=== PATIENT | male | born 1970 | race Caucasian/White ===

== ENCOUNTER 2018-11-11 13:13 | Emergency (ER) | payer SELFPAY | END 2018-11-11 16:11 | disposition left against medical advice (07) | LOC: FTE 16:11 | DX: Z53.21 Procedure and treatment not carried out due to patient leaving prior to being seen by health care provider (principal) ==

== ENCOUNTER 2018-11-18 10:23 | Inpatient (IN) | payer OTHER ==
[2018-11-18] MEDS: morphine 4 MG/ML VIAL IV (13:27)
[2018-11-18 13:39] LABS: ADD MAN DIFF? NO
[2018-11-18 13:50] LABS: WHITE BLOOD COUNT 15.1 10^3/ul (4.8-10.8)
[2018-11-18 13:50] LABS: BASOPHIL # 0.1 10^3/ul (0.0-0.1); BASOPHILS % 0.4 % (0.0-2.0); EOSINOPHILS # 0.1 10^3/ul (0.0-0.5); EOSINOPHILS % 0.9 % (0.0-7.0); HEMATOCRIT 44.8 % (42.0-52.0); HEMOGLOBIN 15.4 g/dl (14.0-18.0); LYMPHOCYTES # 2.1 10^3/ul (0.8-2.9); LYMPHOCYTES % 13.7 % (15.0-51.0); MEAN CORPUSCULAR HEMOGLOBIN 32.8 pg (29.0-33.0); MEAN CORPUSCULAR HGB CONC 34.4 g/dl (32.0-37.0); MEAN CORPUSCULAR VOLUME 95.5 fl (82.0-101.0); MEAN PLATELET VOLUME 9.7 fl (7.4-10.4); MONOCYTE # 0.7 10^3/ul (0.3-0.9); MONOCYTES % 4.4 % (0.0-11.0); NEUTROPHIL # 12.1 10^3/ul (1.6-7.5); NEUTROPHILS % 80.1 % (39.0-77.0); PLATELET COUNT 263 10^3/UL (140-415); RED BLOOD COUNT 4.69 10^6/ul (4.70-6.10); RED CELL DISTRIBUTION WIDTH 12.8 % (11.5-14.5)
[2018-11-18] MEDS ORDERED: ONDANSETRON 4 MG INJ IV ×2 (14:00→17:30)
[2018-11-18] MEDS ORDERED: ACETAMINOPHEN 325 MG TAB PO (14:00)
[2018-11-18 14:04] LABS: ADD UMIC NO; UR ASCORBIC ACID NEGATIVE (NEGATIVE); UR BILIRUBIN (Dip) NEGATIVE (NEGATIVE); UR BLOOD (Dip) NEGATIVE (NEGATIVE); UR CLARITY CLEAR (CLEAR); UR COLOR YELLOW (YELLOW); UR GLUCOSE (Dip) NEGATIVE (NEGATIVE); UR KETONES (Dip) NEGATIVE (NEGATIVE); UR LEUKOCYTE ESTERASE (Dip) NEGATIVE Leu/ul (NEGATIVE); UR NITRITE (Dip) NEGATIVE (NEGATIVE); UR TOTAL PROTEIN (Dip) NEGATIVE (NEGATIVE); UR UROBILINOGEN (Dip) NEGATIVE (NEGATIVE)
[2018-11-18 14:09] LABS: INR 0.87; PROTIME 11.9 Sec (11.9-14.9); PT RATIO 0.9
[2018-11-18 14:10] LABS: PARTIAL THROMBOPLASTIN TIME 34.5 Sec (23.0-35.0)
[2018-11-18 14:11] LABS: ALANINE AMINOTRANSFERASE 20 IU/L (13-69); ALBUMIN 4.4 g/dl (3.3-4.9); ALBUMIN/GLOBULIN RATIO 1.25; ALKALINE PHOSPHATASE 82 IU/L (42-121); ANION GAP 8 (5-13); ASPARTATE AMINO TRANSFERASE 21 IU/L (15-46); BILIRUBIN,INDIRECT 0.3 mg/dl (0-1.1); BILIRUBIN,TOTAL 0.3 mg/dl (0.2-1.3); BLOOD UREA NITROGEN 14 mg/dl (7-20); CALCIUM 10.9 mg/dl (8.4-10.2); CARBON DIOXIDE 26 mmol/L (21-31); CHLORIDE 108 mmol/L (97-110); CREATININE 0.94 mg/dl (0.61-1.24); Estimated GFR > 60 mL/min (>60); GLUCOSE 96 mg/dl (70-220); POTASSIUM 4.4 mmol/L (3.5-5.1); SODIUM 142 mmol/L (135-144); TOTAL PROTEIN 7.9 g/dl (6.1-8.1)
[2018-11-18] MEDS: morphine 10 MG INJ IV (14:35)
[2018-11-18] MEDS: HYDROmorphONE 1 MG/ML SYG IV ×2 (17:15→21:05)
[2018-11-18] MEDS: NICOTINE (14 MG/24 HR) PATCH TRANSDERM (21:05)
[2018-11-18] MEDS: GABAPENTIN 300 MG CAP PO (21:05)
[2018-11-19] MEDS: HYDROmorphONE 1 MG/ML SYG IV ×6 (01:10→20:46)
[2018-11-19] MEDS ORDERED: NICOTINE (14 MG/24 HR) PATCH TRANSDERM (09:00)
[2018-11-19] MEDS: NICOTINE (14 MG/24 HR) PATCH TRANSDERM (09:16)
[2018-11-19] MEDS: GABAPENTIN 300 MG CAP PO ×2 (09:18→20:45)
[2018-11-19 11:46] LABS: ADD MAN DIFF? NO
[2018-11-19 11:50] LABS: WHITE BLOOD COUNT 9.4 10^3/ul (4.8-10.8)
[2018-11-19 11:50] LABS: BASOPHIL # 0.1 10^3/ul (0.0-0.1); BASOPHILS % 0.9 % (0.0-2.0); EOSINOPHILS # 0.3 10^3/ul (0.0-0.5); EOSINOPHILS % 3.4 % (0.0-7.0); HEMATOCRIT 42.3 % (42.0-52.0); HEMOGLOBIN 14.7 g/dl (14.0-18.0); LYMPHOCYTES # 2.8 10^3/ul (0.8-2.9); LYMPHOCYTES % 29.2 % (15.0-51.0); MEAN CORPUSCULAR HGB CONC 34.8 g/dl (32.0-37.0); MEAN CORPUSCULAR VOLUME 94.8 fl (82.0-101.0); MEAN PLATELET VOLUME 10.3 fl (7.4-10.4); MONOCYTE # 0.6 10^3/ul (0.3-0.9); MONOCYTES % 6.6 % (0.0-11.0); NEUTROPHIL # 5.6 10^3/ul (1.6-7.5); NEUTROPHILS % 59.3 % (39.0-77.0); PLATELET COUNT 237 10^3/UL (140-415); POSITIVE DIFF @See below; RED BLOOD COUNT 4.46 10^6/ul (4.70-6.10); RED CELL DISTRIBUTION WIDTH 12.9 % (11.5-14.5)
[2018-11-19 12:07] LABS: ANION GAP 3 (5-13); BLOOD UREA NITROGEN 21 mg/dl (7-20); CALCIUM 10.8 mg/dl (8.4-10.2); CARBON DIOXIDE 30 mmol/L (21-31); CHLORIDE 105 mmol/L (97-110); CREATININE 1.07 mg/dl (0.61-1.24); Estimated GFR > 60 mL/min (>60); GLUCOSE 86 mg/dl (70-220); POTASSIUM 4.5 mmol/L (3.5-5.1); SODIUM 138 mmol/L (135-144)
[2018-11-19 12:15] LABS: INR 0.84; PROTIME 11.6 Sec (11.9-14.9); PT RATIO 0.9
[2018-11-19 12:16] LABS: PARTIAL THROMBOPLASTIN TIME 33.7 Sec (23.0-35.0)
[2018-11-20] MEDS: HYDROmorphONE 1 MG/ML SYG IV ×5 (00:56→20:09)
[2018-11-20] MEDS: NICOTINE (14 MG/24 HR) PATCH TRANSDERM (08:52)
[2018-11-20] MEDS: GABAPENTIN 300 MG CAP PO ×2 (08:52→20:51)
[2018-11-20] MEDS ORDERED: MIDAZOLAM 1 MG/ML 2 ML INJ (13:48)
[2018-11-20] MEDS ORDERED: FENTAnyl 50 MCG/ML VIAL ×3 (13:48→18:09)
[2018-11-20] MEDS ORDERED: PROPOFOL 20 ML (13:49)
[2018-11-20] MEDS ORDERED: METOCLOPRAMIDE 10 MG INJ (13:50)
[2018-11-20] MEDS ORDERED: LIDOCAINE 2% (SDV) 5 ML INJ (13:55)
[2018-11-20] MEDS ORDERED: ROCURONIUM 50 MG INJ (13:55)
[2018-11-20] MEDS ORDERED: SUCCINYLCHOLINE CHLORIDE 100 MG/5 ML SYG IV (13:55)
[2018-11-20] MEDS ORDERED: HYDROmorphONE 2 MG/ML SYG (13:56)
[2018-11-20] MEDS ORDERED: CEFAZOLIN 1 GM INJ (16:19)
[2018-11-20] MEDS ORDERED: HEPARIN 1000 UNITS/ML 10 ML INJ (16:19)
[2018-11-20] MEDS ORDERED: KETAMINE (50 MG/ML) 10 ML VIAL (16:48)
[2018-11-20] MEDS ORDERED: NALOXONE (0.4 MG/ML) INJ IV (18:00)
[2018-11-20] MEDS: CEFAZOLIN 1 GM INJ (18:19)
[2018-11-20] MEDS: THROMBIN 5000 UNIT VIAL (18:21)
[2018-11-20] MEDS: GELATIN SIZE 100 SPONGE (18:21)
[2018-11-20] MEDS ORDERED: CEFAZOLIN 2 GM/50 ML (PMX) 50 ML IVPB (19:30)
[2018-11-20] MEDS ORDERED: TRIMETHOBENZAMIDE 100 MG/ML VIAL IM (20:00)
[2018-11-20] MEDS ORDERED: HYDROmorphONE 0.5 MG/0.5 ML SYG IV ×3 (20:00)
[2018-11-20] MEDS ORDERED: IPRATROPIUM (NEB) 0.5 MG/2.5 ML AMP HHN (20:00)
[2018-11-20] MEDS ORDERED: LABETALOL HCL 20MG INJ IV (20:00)
[2018-11-20] MEDS ORDERED: ONDANSETRON 4 MG INJ IV (20:00)
[2018-11-20] MEDS ORDERED: FENTAnyl 50 MCG/ML VIAL IV (20:00)
[2018-11-20] MEDS ORDERED: DIPHENHYDRAMINE 50 MG INJ IV (20:00)
[2018-11-20] MEDS ORDERED: MEPERIDINE 25 MG INJ IV (20:00)
[2018-11-20] MEDS ORDERED: PROCHLORPERAZINE 10 MG INJ IV (20:00)
[2018-11-20] MEDS ORDERED: LEVALBUTEROL (NEB) 1.25 MG/0.5 ML AMP HHN (20:00)
[2018-11-20] MEDS ORDERED: hydrALAzine 20 MG INJ IV (20:00)
[2018-11-20] MEDS ORDERED: SUGAMMADEX SODIUM 200 MG/2 ML VIAL IV (20:08)
[2018-11-20] MEDS: HYDROmorphONE 0.2 MG/ML PCA IV (20:46)
[2018-11-20] MEDS: NS + KCL 20 MEQ 1,000 ML IV (21:13)
[2018-11-20] MEDS: FENTAnyl 50 MCG/ML VIAL IV (21:21)
[2018-11-20] MEDS: CEFAZOLIN 2 GM/50 ML (PMX) 50 ML IVPB (23:57)
[2018-11-21] MEDS: ALBUTEROL/IPRATROPIUM (NEB) 3 ML AMP HHN ×2 (01:25→08:00)
[2018-11-21] MEDS: HYDROmorphONE 0.2 MG/ML PCA IV ×3 (01:52→16:45)
[2018-11-21 05:31] LABS: HEMATOCRIT 34.4 % (42.0-52.0)
[2018-11-21 05:50] LABS: BLOOD UREA NITROGEN 19 mg/dl (7-20); CALCIUM 8.9 mg/dl (8.4-10.2); CARBON DIOXIDE 23 mmol/L (21-31); CHLORIDE 109 mmol/L (97-110); CREATININE 0.96 mg/dl (0.61-1.24); Estimated GFR > 60 mL/min (>60); GLUCOSE 104 mg/dl (70-220); SODIUM 136 mmol/L (135-144)
[2018-11-21 06:01] LABS: POTASSIUM 4.5 mmol/L (3.5-5.1)
[2018-11-21 06:10] LABS: ANION GAP 9 (5-13)
[2018-11-21] MEDS: CEFAZOLIN 2 GM/50 ML (PMX) 50 ML IVPB ×3 (06:29→21:26)
[2018-11-21] MEDS: NS + KCL 20 MEQ 1,000 ML IV (06:29)
[2018-11-21] MEDS: GABAPENTIN 300 MG CAP PO ×2 (08:50→21:25)
[2018-11-21] MEDS: NICOTINE (14 MG/24 HR) PATCH TRANSDERM (08:51)
[2018-11-21] MEDS: HYDROmorphONE 1 MG/ML SYG IV (10:13)
[2018-11-21] MEDS ORDERED: ALBUTEROL/IPRATROPIUM (NEB) 3 ML AMP HHN (14:30)
[2018-11-21] MEDS ORDERED: ACETAMINOPHEN 325 MG TAB PO (17:00)
[2018-11-21] MEDS ORDERED: HYDROCODONE/APAP (10/325) TAB PO (17:00)
[2018-11-21] MEDS: HYDROCODONE/APAP (10/325) TAB PO ×2 (17:09→21:31)
[2018-11-21 17:52] LABS: ADD MAN DIFF? NO
[2018-11-21 17:56] LABS: BASOPHIL # 0.1 10^3/ul (0.0-0.1); BASOPHILS % 0.5 % (0.0-2.0); EOSINOPHILS # 0.1 10^3/ul (0.0-0.5); EOSINOPHILS % 0.9 % (0.0-7.0); HEMATOCRIT 37.8 % (42.0-52.0); HEMOGLOBIN 12.8 g/dl (14.0-18.0); LYMPHOCYTES # 1.8 10^3/ul (0.8-2.9); LYMPHOCYTES % 11.8 % (15.0-51.0); MEAN CORPUSCULAR HGB CONC 33.9 g/dl (32.0-37.0); MEAN CORPUSCULAR VOLUME 97.4 fl (82.0-101.0); MEAN PLATELET VOLUME 10.2 fl (7.4-10.4); MONOCYTE # 1.2 10^3/ul (0.3-0.9); MONOCYTES % 8.1 % (0.0-11.0); NEUTROPHIL # 11.7 10^3/ul (1.6-7.5); NEUTROPHILS % 78.2 % (39.0-77.0); PLATELET COUNT 194 10^3/UL (140-415); RED BLOOD COUNT 3.88 10^6/ul (4.70-6.10); RED CELL DISTRIBUTION WIDTH 13.1 % (11.5-14.5)
[2018-11-21 17:56] LABS: WHITE BLOOD COUNT 14.9 10^3/ul (4.8-10.8)
[2018-11-21 18:12] LABS: LACTIC ACID 0.8 mmol/L (0.5-2.0)
[2018-11-21 18:14] LABS: ANION GAP 4 (5-13); BLOOD UREA NITROGEN 16 mg/dl (7-20); CARBON DIOXIDE 23 mmol/L (21-31); CHLORIDE 105 mmol/L (97-110); CREATININE 1.02 mg/dl (0.61-1.24); Estimated GFR > 60 mL/min (>60); GLUCOSE 96 mg/dl (70-220); SODIUM 132 mmol/L (135-144)
[2018-11-22] MEDS: HYDROmorphONE 0.2 MG/ML PCA IV ×3 (01:18→20:48)
[2018-11-22 02:57] LABS: ADD UMIC YES; UR ASCORBIC ACID NEGATIVE (NEGATIVE); UR BACTERIA FEW /HPF (NONE SEEN); UR BILIRUBIN (Dip) NEGATIVE (NEGATIVE); UR BLOOD (Dip) 1+ mg/dL (NEGATIVE); UR CLARITY CLEAR (CLEAR); UR COLOR STRAW (YELLOW); UR GLUCOSE (Dip) NEGATIVE (NEGATIVE); UR KETONES (Dip) NEGATIVE (NEGATIVE); UR LEUKOCYTE ESTERASE (Dip) TRACE Leu/ul (NEGATIVE); UR NITRITE (Dip) NEGATIVE (NEGATIVE); UR RBC 1 /HPF (0-5); UR SPECIFIC GRAVITY (Dip) 1.008 (1.003-1.030); UR TOTAL PROTEIN (Dip) NEGATIVE (NEGATIVE); UR UROBILINOGEN (Dip) NEGATIVE (NEGATIVE); UR WBC 4 /HPF (0-5)
[2018-11-22] MEDS: CEFAZOLIN 2 GM/50 ML (PMX) 50 ML IVPB ×3 (05:09→21:51)
[2018-11-22 05:35] LABS: ADD MAN DIFF? NO
[2018-11-22 05:40] LABS: WHITE BLOOD COUNT 16.3 10^3/ul (4.8-10.8)
[2018-11-22 05:40] LABS: BASOPHIL # 0.1 10^3/ul (0.0-0.1); BASOPHILS % 0.4 % (0.0-2.0); EOSINOPHILS # 0.3 10^3/ul (0.0-0.5); EOSINOPHILS % 1.5 % (0.0-7.0); HEMATOCRIT 36.5 % (42.0-52.0); HEMOGLOBIN 12.4 g/dl (14.0-18.0); LYMPHOCYTES # 2.4 10^3/ul (0.8-2.9); LYMPHOCYTES % 14.5 % (15.0-51.0); MEAN CORPUSCULAR HEMOGLOBIN 33.1 pg (29.0-33.0); MEAN CORPUSCULAR VOLUME 97.3 fl (82.0-101.0); MEAN PLATELET VOLUME 10.5 fl (7.4-10.4); MONOCYTE # 1.5 10^3/ul (0.3-0.9); MONOCYTES % 9.2 % (0.0-11.0); NEUTROPHILS % 73.7 % (39.0-77.0); PLATELET COUNT 197 10^3/UL (140-415); RED BLOOD COUNT 3.75 10^6/ul (4.70-6.10); RED CELL DISTRIBUTION WIDTH 12.8 % (11.5-14.5)
[2018-11-22 06:20] LABS: ANION GAP 7 (5-13); BLOOD UREA NITROGEN 18 mg/dl (7-20); CALCIUM 10.2 mg/dl (8.4-10.2); CARBON DIOXIDE 25 mmol/L (21-31); CHLORIDE 105 mmol/L (97-110); CREATININE 1.11 mg/dl (0.61-1.24); Estimated GFR > 60 mL/min (>60); GLUCOSE 84 mg/dl (70-220); POTASSIUM 4.3 mmol/L (3.5-5.1); SODIUM 137 mmol/L (135-144)
[2018-11-22] MEDS: HYDROCODONE/APAP (10/325) TAB PO ×4 (08:07→20:46)
[2018-11-22] MEDS: GABAPENTIN 300 MG CAP PO ×2 (09:34→20:46)
[2018-11-22] MEDS: NICOTINE (14 MG/24 HR) PATCH TRANSDERM (09:34)
[2018-11-22] MEDS: KETOROLAC 30 MG INJ IV ×2 (12:32→18:47)
[2018-11-23] MEDS ORDERED: ROCURONIUM 50 MG INJ ×2 (07:00→15:27)
[2018-11-23] MEDS: HYDROmorphONE 0.2 MG/ML PCA IV ×3 (07:08→17:57)
[2018-11-23] MEDS: GABAPENTIN 300 MG CAP PO ×2 (07:43→20:44)
[2018-11-23] MEDS: HYDROCODONE/APAP (10/325) TAB PO ×3 (08:00→20:44)
[2018-11-23] MEDS: NICOTINE (14 MG/24 HR) PATCH TRANSDERM (09:00)
[2018-11-23] MEDS ORDERED: THROMBIN 5000 UNIT VIAL (14:58)
[2018-11-23] MEDS ORDERED: GELATIN SIZE 100 SPONGE (14:59)
[2018-11-23] MEDS ORDERED: MIDAZOLAM 1 MG/ML 2 ML INJ (15:27)
[2018-11-23] MEDS ORDERED: SUCCINYLCHOLINE CHLORIDE 100 MG/5 ML SYG IV (15:27)
[2018-11-23] MEDS ORDERED: LIDOCAINE 2% (SDV) 5 ML INJ (15:27)
[2018-11-23] MEDS ORDERED: PROPOFOL 20 ML ×2 (15:27→17:02)
[2018-11-23] MEDS ORDERED: CEFAZOLIN 1 GM INJ (15:38)
[2018-11-23] MEDS ORDERED: DEXAMETHASONE 4 MG/ML 5 ML INJ (15:50)
[2018-11-23] MEDS ORDERED: EPHEDrine SULFATE 50 MG/5 ML SYG (15:50)
[2018-11-23] MEDS ORDERED: ONDANSETRON 4 MG INJ (15:50)
[2018-11-23] MEDS ORDERED: FAMOTIDINE 20 MG INJ (15:50)
[2018-11-23] MEDS: POLYMYXIN/BACITRACIN 1L IRRIG (16:29)
[2018-11-23] MEDS: ROPIVACAINE 0.5 % 30 ML VIAL (16:30)
[2018-11-23] MEDS ORDERED: SUGAMMADEX SODIUM 200 MG/2 ML VIAL IV ×2 (17:02→17:08)
[2018-11-23] MEDS ORDERED: PROCHLORPERAZINE 10 MG INJ IV (18:00)
[2018-11-23] MEDS ORDERED: FENTAnyl 50 MCG/ML VIAL IV ×3 (18:00)
[2018-11-23] MEDS ORDERED: HYDROmorphONE 1 MG/5 ML IV SYRINGE IV (18:00)
[2018-11-23] MEDS: MEPERIDINE 25 MG INJ IV (18:01)
[2018-11-23] MEDS: HYDROmorphONE 1 MG/5 ML IV SYRINGE IV ×2 (18:01→18:08)
[2018-11-23] MEDS: ONDANSETRON 4 MG INJ IV (18:02)
[2018-11-23] MEDS: KETOROLAC 30 MG INJ IV (18:02)
[2018-11-23] MEDS: DIPHENHYDRAMINE 50 MG INJ IV (18:14)
[2018-11-24] MEDS: CEFAZOLIN 2 GM/50 ML (PMX) 50 ML IVPB ×3 (01:26→17:27)
[2018-11-24 05:14] LABS: ADD MAN DIFF? NO
[2018-11-24 05:19] LABS: WHITE BLOOD COUNT 14.3 10^3/ul (4.8-10.8)
[2018-11-24 05:19] LABS: BASOPHILS % 0.1 % (0.0-2.0); HEMATOCRIT 29.3 % (42.0-52.0); HEMOGLOBIN 10.1 g/dl (14.0-18.0); LYMPHOCYTES # 0.9 10^3/ul (0.8-2.9); MEAN CORPUSCULAR HGB CONC 34.5 g/dl (32.0-37.0); MEAN CORPUSCULAR VOLUME 95.8 fl (82.0-101.0); MEAN PLATELET VOLUME 10.5 fl (7.4-10.4); MONOCYTE # 0.7 10^3/ul (0.3-0.9); MONOCYTES % 5.1 % (0.0-11.0); NEUTROPHIL # 12.5 10^3/ul (1.6-7.5); NEUTROPHILS % 87.8 % (39.0-77.0); PLATELET COUNT 176 10^3/UL (140-415); RED BLOOD COUNT 3.06 10^6/ul (4.70-6.10); RED CELL DISTRIBUTION WIDTH 12.3 % (11.5-14.5)
[2018-11-24 05:48] LABS: ANION GAP 9 (5-13); BLOOD UREA NITROGEN 16 mg/dl (7-20); CALCIUM 9.6 mg/dl (8.4-10.2); CARBON DIOXIDE 27 mmol/L (21-31); CHLORIDE 106 mmol/L (97-110); CREATININE 0.93 mg/dl (0.61-1.24); Estimated GFR > 60 mL/min (>60); GLUCOSE 109 mg/dl (70-220); POTASSIUM 4.8 mmol/L (3.5-5.1); SODIUM 142 mmol/L (135-144)
[2018-11-24] MEDS: GABAPENTIN 300 MG CAP PO ×2 (08:00→20:10)
[2018-11-24] MEDS: NICOTINE (14 MG/24 HR) PATCH TRANSDERM (08:00)
[2018-11-24] MEDS: KETOROLAC 30 MG INJ IV ×3 (08:00→20:11)
[2018-11-24] MEDS: HYDROmorphONE 0.2 MG/ML PCA IV ×2 (08:10→16:24)
[2018-11-24] MEDS: HYDROCODONE/APAP (10/325) TAB PO ×3 (10:40→20:11)
[2018-11-24] MEDS: DOCUSATE SODIUM 100 MG CAP PO (20:11)
[2018-11-25] MEDS: HYDROmorphONE 0.2 MG/ML PCA IV ×3 (00:02→19:59)
[2018-11-25] MEDS: KETOROLAC 30 MG INJ IV ×3 (01:19→16:07)
[2018-11-25] MEDS: CEFAZOLIN 2 GM/50 ML (PMX) 50 ML IVPB ×2 (01:19→09:29)
[2018-11-25] MEDS: HYDROCODONE/APAP (10/325) TAB PO ×5 (01:19→22:37)
[2018-11-25 05:41] LABS: ADD MAN DIFF? NO
[2018-11-25 05:46] LABS: BASOPHILS % 0.4 % (0.0-2.0); EOSINOPHILS # 0.4 10^3/ul (0.0-0.5); EOSINOPHILS % 3.6 % (0.0-7.0); HEMATOCRIT 27.1 % (42.0-52.0); HEMOGLOBIN 9.3 g/dl (14.0-18.0); LYMPHOCYTES # 2.5 10^3/ul (0.8-2.9); LYMPHOCYTES % 25.3 % (15.0-51.0); MEAN CORPUSCULAR HGB CONC 34.3 g/dl (32.0-37.0); MEAN CORPUSCULAR VOLUME 96.1 fl (82.0-101.0); MEAN PLATELET VOLUME 10.1 fl (7.4-10.4); MONOCYTE # 0.8 10^3/ul (0.3-0.9); MONOCYTES % 8.4 % (0.0-11.0); NEUTROPHIL # 6.2 10^3/ul (1.6-7.5); NEUTROPHILS % 61.6 % (39.0-77.0); PLATELET COUNT 199 10^3/UL (140-415); RED BLOOD COUNT 2.82 10^6/ul (4.70-6.10); RED CELL DISTRIBUTION WIDTH 12.4 % (11.5-14.5)
[2018-11-25 06:19] LABS: ANION GAP 4 (5-13); BLOOD UREA NITROGEN 19 mg/dl (7-20); CALCIUM 9.2 mg/dl (8.4-10.2); CARBON DIOXIDE 28 mmol/L (21-31); CHLORIDE 107 mmol/L (97-110); CREATININE 1.14 mg/dl (0.61-1.24); Estimated GFR > 60 mL/min (>60); GLUCOSE 97 mg/dl (70-220); POTASSIUM 3.9 mmol/L (3.5-5.1); SODIUM 139 mmol/L (135-144)
[2018-11-25] MEDS: DOCUSATE SODIUM 100 MG CAP PO ×2 (09:24→20:38)
[2018-11-25] MEDS: GABAPENTIN 300 MG CAP PO ×2 (09:24→20:38)
[2018-11-25] MEDS: NICOTINE (14 MG/24 HR) PATCH TRANSDERM (09:26)
[2018-11-25] MEDS: MAGNESIUM HYDROXIDE 30ML CUP PO (18:33)
[2018-11-26] MEDS: KETOROLAC 30 MG INJ IV (00:08)
[2018-11-26] MEDS: HYDROCODONE/APAP (10/325) TAB PO (07:47)
[2018-11-26] MEDS: DOCUSATE SODIUM 100 MG CAP PO ×2 (08:55→21:02)
[2018-11-26] MEDS: GABAPENTIN 300 MG CAP PO ×2 (08:55→21:02)
[2018-11-26] MEDS: NICOTINE (14 MG/24 HR) PATCH TRANSDERM (08:56)
[2018-11-26 10:00] LABS: ADD MAN DIFF? NO
[2018-11-26 10:00] LABS: WHITE BLOOD COUNT 12.5 10^3/ul (4.8-10.8)
[2018-11-26] MEDS ORDERED: HYDROCODONE/APAP (10/325) TAB PO (10:00)
[2018-11-26 10:01] LABS: BASOPHIL # 0.1 10^3/ul (0.0-0.1); BASOPHILS % 0.6 % (0.0-2.0); EOSINOPHILS # 0.6 10^3/ul (0.0-0.5); EOSINOPHILS % 4.5 % (0.0-7.0); HEMATOCRIT 30.6 % (42.0-52.0); HEMOGLOBIN 10.3 g/dl (14.0-18.0); LYMPHOCYTES # 1.8 10^3/ul (0.8-2.9); LYMPHOCYTES % 14.1 % (15.0-51.0); MEAN CORPUSCULAR HEMOGLOBIN 32.6 pg (29.0-33.0); MEAN CORPUSCULAR HGB CONC 33.7 g/dl (32.0-37.0); MEAN CORPUSCULAR VOLUME 96.8 fl (82.0-101.0); MEAN PLATELET VOLUME 10.4 fl (7.4-10.4); MONOCYTE # 0.6 10^3/ul (0.3-0.9); NEUTROPHIL # 9.4 10^3/ul (1.6-7.5); NEUTROPHILS % 75.1 % (39.0-77.0); PLATELET COUNT 255 10^3/UL (140-415); RED BLOOD COUNT 3.16 10^6/ul (4.70-6.10); RED CELL DISTRIBUTION WIDTH 12.6 % (11.5-14.5)
[2018-11-26] MEDS: HYDROmorphONE 0.5 MG/0.5 ML SYG IV (10:09)
[2018-11-26 10:25] LABS: ANION GAP 8 (5-13); BLOOD UREA NITROGEN 15 mg/dl (7-20); CALCIUM 9.8 mg/dl (8.4-10.2); CARBON DIOXIDE 27 mmol/L (21-31); CHLORIDE 104 mmol/L (97-110); CREATININE 0.87 mg/dl (0.61-1.24); Estimated GFR > 60 mL/min (>60); GLUCOSE 139 mg/dl (70-220); SODIUM 139 mmol/L (135-144)
[2018-11-26] MEDS: OXYCODONE/ACETAMINOPHEN (5/325) TAB PO ×4 (11:03→23:29)
[2018-11-26] MEDS: HYDROmorphONE 1 MG/ML SYG IV ×3 (13:16→21:03)
[2018-11-27] MEDS: OXYCODONE/ACETAMINOPHEN (5/325) TAB PO ×6 (03:32→23:52)
[2018-11-27] MEDS: HYDROmorphONE 1 MG/ML SYG IV ×5 (04:49→21:42)
[2018-11-27 05:50] LABS: ADD MAN DIFF? NO
[2018-11-27 05:52] LABS: BASOPHIL # 0.1 10^3/ul (0.0-0.1); BASOPHILS % 0.6 % (0.0-2.0); EOSINOPHILS # 0.5 10^3/ul (0.0-0.5); EOSINOPHILS % 4.4 % (0.0-7.0); HEMATOCRIT 29.1 % (42.0-52.0); HEMOGLOBIN 9.8 g/dl (14.0-18.0); LYMPHOCYTES # 2.6 10^3/ul (0.8-2.9); LYMPHOCYTES % 23.4 % (15.0-51.0); MEAN CORPUSCULAR HEMOGLOBIN 32.7 pg (29.0-33.0); MEAN CORPUSCULAR HGB CONC 33.7 g/dl (32.0-37.0); MONOCYTE # 0.8 10^3/ul (0.3-0.9); MONOCYTES % 7.3 % (0.0-11.0); NEUTROPHILS % 62.9 % (39.0-77.0); PLATELET COUNT 263 10^3/UL (140-415); RED CELL DISTRIBUTION WIDTH 12.5 % (11.5-14.5)
[2018-11-27 05:52] LABS: WHITE BLOOD COUNT 11.2 10^3/ul (4.8-10.8)
[2018-11-27 06:45] LABS: ANION GAP 3 (5-13); BLOOD UREA NITROGEN 15 mg/dl (7-20); CALCIUM 10.5 mg/dl (8.4-10.2); CARBON DIOXIDE 28 mmol/L (21-31); CHLORIDE 105 mmol/L (97-110); CREATININE 0.94 mg/dl (0.61-1.24); Estimated GFR > 60 mL/min (>60); GLUCOSE 101 mg/dl (70-220); SODIUM 136 mmol/L (135-144)
[2018-11-27 07:00] LABS: POTASSIUM 4.2 mmol/L (3.5-5.1)
[2018-11-27] MEDS: GABAPENTIN 300 MG CAP PO ×2 (09:21→21:42)
[2018-11-27] MEDS: DOCUSATE SODIUM 100 MG CAP PO ×2 (09:21→21:41)
[2018-11-27] MEDS: NICOTINE (14 MG/24 HR) PATCH TRANSDERM (09:22)
[2018-11-28] MEDS: HYDROmorphONE 1 MG/ML SYG IV ×6 (01:39→22:31)
[2018-11-28 05:45] LABS: ANION GAP 4 (5-13); BLOOD UREA NITROGEN 16 mg/dl (7-20); CALCIUM 10.2 mg/dl (8.4-10.2); CARBON DIOXIDE 29 mmol/L (21-31); CHLORIDE 104 mmol/L (97-110); Estimated GFR > 60 mL/min (>60); GLUCOSE 99 mg/dl (70-220); POTASSIUM 4.2 mmol/L (3.5-5.1); SODIUM 137 mmol/L (135-144)
[2018-11-28] MEDS: OXYCODONE/ACETAMINOPHEN (5/325) TAB PO ×5 (06:00→21:16)
[2018-11-28] MEDS: DOCUSATE SODIUM 100 MG CAP PO ×2 (08:37→21:15)
[2018-11-28] MEDS: GABAPENTIN 300 MG CAP PO ×2 (08:37→21:15)
[2018-11-28] MEDS: NICOTINE (14 MG/24 HR) PATCH TRANSDERM (08:38)
[2018-11-28] MEDS: MAGNESIUM HYDROXIDE 30ML CUP PO (18:49)
[2018-11-29] MEDS: OXYCODONE/ACETAMINOPHEN (5/325) TAB PO ×6 (01:10→22:02)
[2018-11-29] MEDS: HYDROmorphONE 1 MG/ML SYG IV ×6 (02:33→23:06)
[2018-11-29] MEDS: DOCUSATE SODIUM 100 MG CAP PO ×2 (09:33→21:31)
[2018-11-29] MEDS: GABAPENTIN 300 MG CAP PO ×2 (09:33→21:31)
[2018-11-29] MEDS: NICOTINE (14 MG/24 HR) PATCH TRANSDERM (09:34)
[2018-11-29] MEDS: HYDROmorphONE 2 MG/ML SYG IV (16:38)
[2018-11-30] MEDS: OXYCODONE/ACETAMINOPHEN (5/325) TAB PO ×4 (01:52→18:17)
[2018-11-30] MEDS: HYDROmorphONE 1 MG/ML SYG IV ×4 (03:29→16:26)
[2018-11-30] MEDS: GABAPENTIN 300 MG CAP PO (09:23)
[2018-11-30] MEDS: DOCUSATE SODIUM 100 MG CAP PO (09:23)
[2018-11-30] MEDS: NICOTINE (14 MG/24 HR) PATCH TRANSDERM (09:25)
[2018-11-30] MEDS: HYDROmorphONE 2 MG/ML SYG IV (14:38)
== END 2018-11-30 20:30 | disposition home health service (06) | DRG 455 ==
LOC: MS1 11-21 15:32 → ICU 11-20 18:00 → FTE 10:23 → 2NE 13:48
PROC: 0SG10A0 Fusion of 2 or more Lumbar Vertebral Joints with Interbody Fusion Device, Anterior Approach, Anterior Column, Open Approach (ICD-10-PCS; principal; 2018-11-20 16:00)
PROC: 0SG30A0 Fusion of Lumbosacral Joint with Interbody Fusion Device, Anterior Approach, Anterior Column, Open Approach (ICD-10-PCS; 2018-11-20 16:00)
PROC: 0SB20ZZ Excision of Lumbar Vertebral Disc, Open Approach (ICD-10-PCS; 2018-11-20 16:00)
PROC: 0SB40ZZ Excision of Lumbosacral Disc, Open Approach (ICD-10-PCS; 2018-11-20 16:00)
PROC: 0SG10J1 Fusion of 2 or more Lumbar Vertebral Joints with Synthetic Substitute, Posterior Approach, Posterior Column, Open Approach (ICD-10-PCS; 2018-11-20 16:44)
PROC: 0SG30J1 Fusion of Lumbosacral Joint with Synthetic Substitute, Posterior Approach, Posterior Column, Open Approach (ICD-10-PCS; 2018-11-20 16:44)
PROC: 01NB0ZZ Release Lumbar Nerve, Open Approach (ICD-10-PCS; 2018-11-20 16:44)
DX: M51.16 Intervertebral disc disorders with radiculopathy, lumbar region (principal); M51.17 Intervertebral disc disorders with radiculopathy, lumbosacral region; D72.828 Other elevated white blood cell count; E88.2 Lipomatosis, not elsewhere classified; F17.200 Nicotine dependence, unspecified, uncomplicated; G89.18 Other acute postprocedural pain; M71.38 Other bursal cyst, other site; M54.5 Low back pain; N20.0 Calculus of kidney; R53.1 Weakness; F10.21 Alcohol dependence, in remission
CPT/HCPCS: 36415; 71045; 72110; 72114; 72131; 80048; 80053; 81001; 81003; 83605; 84145; 85014; 85018; 85025; 85610; 85730; 86850; 86900; 86901; 86920; 87040; 87081; 87086; 88304; 88311; 93005; 94664; 96374; 97116; 97162; 97164; 97530; 99285-25

== ENCOUNTER 2019-06-15 08:40 | Inpatient (IN) | payer OTHER ==
[2019-06-15] MEDS: morphine 4 MG/ML VIAL IV (09:09)
[2019-06-15] MEDS: ONDANSETRON 4 MG INJ IV (09:09)
[2019-06-15 09:10] LABS: ADD MAN DIFF? NO
[2019-06-15 09:21] LABS: WHITE BLOOD COUNT 9.4 10^3/ul (4.8-10.8)
[2019-06-15 09:21] LABS: BASOPHIL # 0.1 10^3/ul (0.0-0.1); BASOPHILS % 0.7 % (0.0-2.0); EOSINOPHILS # 0.3 10^3/ul (0.0-0.5); EOSINOPHILS % 3.2 % (0.0-7.0); HEMATOCRIT 47.1 % (42.0-52.0); HEMOGLOBIN 15.5 g/dl (14.0-18.0); LYMPHOCYTES # 2.3 10^3/ul (0.8-2.9); MEAN CORPUSCULAR HEMOGLOBIN 32.3 pg (29.0-33.0); MEAN CORPUSCULAR HGB CONC 32.9 g/dl (32.0-37.0); MEAN CORPUSCULAR VOLUME 98.1 fl (82.0-101.0); MEAN PLATELET VOLUME 9.9 fl (7.4-10.4); MONOCYTE # 0.6 10^3/ul (0.3-0.9); MONOCYTES % 6.2 % (0.0-11.0); NEUTROPHILS % 64.4 % (39.0-77.0); PLATELET COUNT 289 10^3/UL (140-415); RED CELL DISTRIBUTION WIDTH 13.4 % (11.5-14.5)
[2019-06-15 09:31] LABS: ANION GAP 8 (5-13); BLOOD UREA NITROGEN 14 mg/dl (7-20); CARBON DIOXIDE 28 mmol/L (21-31); CHLORIDE 109 mmol/L (97-110); CREATININE 1.05 mg/dl (0.61-1.24); Estimated GFR > 60 mL/min (>60); GLUCOSE 101 mg/dl (70-220); POTASSIUM 4.2 mmol/L (3.5-5.1); SODIUM 145 mmol/L (135-144)
[2019-06-15 09:33] LABS: INR 0.87; PROTIME 11.9 Sec (11.9-14.9); PT RATIO 0.9
[2019-06-15 09:34] LABS: PARTIAL THROMBOPLASTIN TIME 32.5 Sec (23.0-35.0)
[2019-06-15] MEDS: HYDROmorphONE 2 MG/ML SYG IV ×2 (09:38→11:35)
[2019-06-15 09:42] LABS: TROPONIN-I < 0.012 ng/ml (0.000-0.120)
[2019-06-15] MEDS ORDERED: ACETAMINOPHEN 325 MG TAB PO (10:00)
[2019-06-15] MEDS ORDERED: ONDANSETRON 4 MG INJ IV (10:00)
[2019-06-15] MEDS: morphine 2 MG INJ IV ×6 (12:56→23:03)
[2019-06-15] MEDS: HYDROCODONE/APAP (10/325) TAB PO ×2 (15:58→21:55)
[2019-06-16] MEDS: morphine 2 MG INJ IV ×7 (01:05→13:28)
[2019-06-16] MEDS: NICOTINE (21 MG/24 HR) PATCH TRANSDERM (13:28)
[2019-06-16] MEDS ORDERED: THROMBIN 5000 UNIT (RECOTHROM) VIAL (14:45)
[2019-06-16] MEDS ORDERED: GELATIN SIZE 100 SPONGE (14:45)
[2019-06-16] MEDS ORDERED: MIDAZOLAM 1 MG/ML 2 ML INJ (15:13)
[2019-06-16] MEDS ORDERED: FENTAnyl 50 MCG/ML VIAL (15:13)
[2019-06-16] MEDS ORDERED: LIDOCAINE 2% (SDV) 5 ML INJ (15:13)
[2019-06-16] MEDS ORDERED: FENTAnyl 50 MCG/ML VIAL IV ×2 (15:30)
[2019-06-16] MEDS ORDERED: HYDROmorphONE 1 MG/5 ML IV SYRINGE IV (15:30)
[2019-06-16] MEDS ORDERED: ALBUTEROL 0.083% (NEB) 2.5 MG/3 ML AMP HHN (15:30)
[2019-06-16] MEDS ORDERED: METOCLOPRAMIDE 10 MG INJ IV (15:30)
[2019-06-16] MEDS ORDERED: PROPOFOL 20 ML (16:23)
[2019-06-16] MEDS ORDERED: CEFAZOLIN 1 GM INJ (16:23)
[2019-06-16] MEDS ORDERED: SUCCINYLCHOLINE CHLORIDE 100 MG/5 ML SYG IV (16:23)
[2019-06-16] MEDS ORDERED: SUGAMMADEX SODIUM 200 MG/2 ML VIAL IV (16:23)
[2019-06-16] MEDS ORDERED: ROCURONIUM 50 MG INJ (16:23)
[2019-06-16] MEDS: POLYMYXIN/BACITRACIN 1L IRRIG (16:53)
[2019-06-16] MEDS: ROPIVACAINE 0.5 % 30 ML VIAL (16:54)
[2019-06-16] MEDS: MEPERIDINE 25 MG INJ IV (17:50)
[2019-06-16] MEDS: DIPHENHYDRAMINE 50 MG INJ IV (17:51)
[2019-06-16] MEDS: ONDANSETRON 4 MG INJ IV (17:52)
[2019-06-16] MEDS: FENTAnyl 50 MCG/ML VIAL IV ×2 (17:56→18:05)
[2019-06-16] MEDS ORDERED: CEFAZOLIN 2 GM/50 ML (PMX) 50 ML IVPB ×2 (18:00→18:30)
[2019-06-16] MEDS ORDERED: HYDROmorphONE 0.2 MG/ML PCA IV ×2 (18:00→18:25)
[2019-06-16] MEDS: HYDROmorphONE 1 MG/5 ML IV SYRINGE IV ×2 (18:28→19:09)
[2019-06-16] MEDS: HYDROmorphONE 0.2 MG/ML PCA IV ×2 (18:39→21:18)
[2019-06-17] MEDS: CEFAZOLIN 2 GM/50 ML (PMX) 50 ML IVPB ×4 (00:53→23:43)
[2019-06-17] MEDS: HYDROmorphONE 0.2 MG/ML PCA IV ×7 (01:36→21:55)
[2019-06-17] MEDS: NICOTINE (21 MG/24 HR) PATCH TRANSDERM (09:32)
[2019-06-17] MEDS: HYDROmorphONE 0.5 MG/0.5 ML SYG IV ×4 (11:17→21:52)
[2019-06-17] MEDS: KETOROLAC 30 MG INJ IV (20:00)
[2019-06-17] MEDS: POLYETHYLENE GLYCOL 17 GM PACKET PO (21:44)
[2019-06-17] MEDS: GABAPENTIN 300 MG CAP PO (22:56)
[2019-06-17] MEDS: METHOCARBAMOL 750 MG TAB PO (22:56)
[2019-06-18] MEDS: HYDROmorphONE 0.2 MG/ML PCA IV ×5 (01:40→19:46)
[2019-06-18] MEDS: HYDROmorphONE 0.5 MG/0.5 ML SYG IV ×4 (01:43→11:45)
[2019-06-18 05:49] LABS: ADD MAN DIFF? NO
[2019-06-18 05:51] LABS: BASOPHILS % 0.4 % (0.0-2.0); EOSINOPHILS # 0.2 10^3/ul (0.0-0.5); EOSINOPHILS % 2.4 % (0.0-7.0); HEMATOCRIT 37.1 % (42.0-52.0); HEMOGLOBIN 12.4 g/dl (14.0-18.0); LYMPHOCYTES % 20.2 % (15.0-51.0); MEAN CORPUSCULAR HEMOGLOBIN 32.9 pg (29.0-33.0); MEAN CORPUSCULAR HGB CONC 33.4 g/dl (32.0-37.0); MEAN CORPUSCULAR VOLUME 98.4 fl (82.0-101.0); MEAN PLATELET VOLUME 10.6 fl (7.4-10.4); MONOCYTE # 1.2 10^3/ul (0.3-0.9); MONOCYTES % 11.5 % (0.0-11.0); NEUTROPHIL # 6.5 10^3/ul (1.6-7.5); NEUTROPHILS % 65.2 % (39.0-77.0); PLATELET COUNT 199 10^3/UL (140-415); RED BLOOD COUNT 3.77 10^6/ul (4.70-6.10); RED CELL DISTRIBUTION WIDTH 12.8 % (11.5-14.5)
[2019-06-18 06:29] LABS: ANION GAP 4 (5-13); BLOOD UREA NITROGEN 11 mg/dl (7-20); CALCIUM 10.2 mg/dl (8.4-10.2); CARBON DIOXIDE 32 mmol/L (21-31); CHLORIDE 103 mmol/L (97-110); CREATININE 0.87 mg/dl (0.61-1.24); Estimated GFR > 60 mL/min (>60); GLUCOSE 86 mg/dl (70-220); POTASSIUM 3.8 mmol/L (3.5-5.1); SODIUM 139 mmol/L (135-144)
[2019-06-18] MEDS: CEFAZOLIN 2 GM/50 ML (PMX) 50 ML IVPB (07:46)
[2019-06-18] MEDS: POLYETHYLENE GLYCOL 17 GM PACKET PO (07:51)
[2019-06-18] MEDS: METHOCARBAMOL 750 MG TAB PO ×3 (08:33→21:16)
[2019-06-18] MEDS: GABAPENTIN 300 MG CAP PO ×3 (08:35→21:16)
[2019-06-18] MEDS ORDERED: METHOCARBAMOL 750 MG TAB PO (09:00)
[2019-06-18] MEDS ORDERED: GABAPENTIN 300 MG CAP PO (09:00)
[2019-06-18] MEDS: NICOTINE (21 MG/24 HR) PATCH TRANSDERM (11:03)
[2019-06-18] MEDS: KETOROLAC 30 MG INJ IV (13:18)
[2019-06-18] MEDS: HYDROmorphONE 2 MG/ML SYG IV ×3 (14:46→23:01)
[2019-06-18] MEDS: traZODone 50 MG TAB PO (21:16)
[2019-06-19] MEDS: HYDROmorphONE 0.2 MG/ML PCA IV ×4 (02:07→20:45)
[2019-06-19] MEDS: HYDROmorphONE 2 MG/ML SYG IV ×7 (02:53→21:22)
[2019-06-19] MEDS: POLYETHYLENE GLYCOL 17 GM PACKET PO (08:54)
[2019-06-19] MEDS: METHOCARBAMOL 750 MG TAB PO ×3 (08:54→20:48)
[2019-06-19] MEDS: GABAPENTIN 300 MG CAP PO ×3 (08:54→20:48)
[2019-06-19] MEDS: NICOTINE (21 MG/24 HR) PATCH TRANSDERM (08:59)
[2019-06-19] MEDS: KETOROLAC 30 MG INJ IV ×2 (15:45→21:21)
[2019-06-19] MEDS: traZODone 50 MG TAB PO (20:48)
[2019-06-20] MEDS: HYDROmorphONE 2 MG/ML SYG IV ×8 (00:18→21:37)
[2019-06-20] MEDS: HYDROmorphONE 0.2 MG/ML PCA IV ×4 (03:15→21:45)
[2019-06-20] MEDS: KETOROLAC 30 MG INJ IV ×4 (03:43→18:36)
[2019-06-20] MEDS: GABAPENTIN 300 MG CAP PO ×3 (09:41→21:34)
[2019-06-20] MEDS: POLYETHYLENE GLYCOL 17 GM PACKET PO (09:41)
[2019-06-20] MEDS: METHOCARBAMOL 750 MG TAB PO ×3 (09:41→21:35)
[2019-06-20] MEDS: NICOTINE (21 MG/24 HR) PATCH TRANSDERM (09:42)
[2019-06-20] MEDS: traZODone 50 MG TAB PO (21:34)
[2019-06-21] MEDS: HYDROmorphONE 2 MG/ML SYG IV ×8 (00:49→23:01)
[2019-06-21] MEDS: HYDROmorphONE 0.2 MG/ML PCA IV ×4 (04:07→22:57)
[2019-06-21] MEDS: METHOCARBAMOL 750 MG TAB PO ×3 (09:10→23:01)
[2019-06-21] MEDS: POLYETHYLENE GLYCOL 17 GM PACKET PO (09:10)
[2019-06-21] MEDS: GABAPENTIN 300 MG CAP PO ×3 (09:10→23:02)
[2019-06-21] MEDS: NICOTINE (21 MG/24 HR) PATCH TRANSDERM (09:12)
[2019-06-21] MEDS: traZODone 50 MG TAB PO (23:01)
[2019-06-22] MEDS: HYDROmorphONE 2 MG/ML SYG IV ×2 (02:02→06:47)
[2019-06-22] MEDS: HYDROmorphONE 0.2 MG/ML PCA IV (04:28)
[2019-06-22] MEDS: NICOTINE (21 MG/24 HR) PATCH TRANSDERM (08:34)
[2019-06-22] MEDS: GABAPENTIN 300 MG CAP PO ×3 (08:35→20:07)
[2019-06-22] MEDS: oxyCODONE (CR) 10 MG TAB [oxyCONTIN] PO ×3 (08:35→21:27)
[2019-06-22] MEDS: POLYETHYLENE GLYCOL 17 GM PACKET PO (08:39)
[2019-06-22] MEDS: METHOCARBAMOL 750 MG TAB PO ×3 (09:02→20:07)
[2019-06-22] MEDS: oxyCODONE 5 MG TAB PO ×3 (09:02→17:18)
[2019-06-22] MEDS: HYDROmorphONE 1 MG/ML SYG IV ×4 (11:14→20:13)
[2019-06-22] MEDS: traZODone 50 MG TAB PO (20:07)
[2019-06-23] MEDS: HYDROmorphONE 1 MG/ML SYG IV ×3 (05:40→11:40)
[2019-06-23] MEDS: oxyCODONE 5 MG TAB PO ×2 (06:50→10:55)
[2019-06-23] MEDS: NICOTINE (21 MG/24 HR) PATCH TRANSDERM (08:30)
[2019-06-23] MEDS: oxyCODONE (CR) 10 MG TAB [oxyCONTIN] PO (08:30)
[2019-06-23] MEDS: GABAPENTIN 300 MG CAP PO ×2 (08:30→12:54)
[2019-06-23] MEDS: METHOCARBAMOL 750 MG TAB PO ×2 (08:30→12:54)
[2019-06-23] MEDS: POLYETHYLENE GLYCOL 17 GM PACKET PO (08:35)
== END 2019-06-23 13:00 | disposition home or self-care (01) | DRG 497 ==
LOC: E/R 08:40 → MS1 09:38
PROC: 0QP004Z Removal of Internal Fixation Device from Lumbar Vertebra, Open Approach (ICD-10-PCS; principal; 2019-06-16 15:00)
PROC: 0QB00ZZ Excision of Lumbar Vertebra, Open Approach (ICD-10-PCS; 2019-06-16 15:00)
DX: S32.039A Unspecified fracture of third lumbar vertebra, initial encounter for closed fracture (principal); I10 Essential (primary) hypertension; G89.29 Other chronic pain; V43.92XA Unspecified car occupant injured in collision with other type car in traffic accident, initial encounter; Y92.410 Unspecified street and highway as the place of occurrence of the external cause
CPT/HCPCS: 36415; 71045; 72114; 72131; 80048; 84484; 85025; 85610; 85730; 86850; 86900; 86901; 87086; 88300; 88304; 88311; 93005; 96374; 96375; 97116; 97162; 97530; 99285-25

== ENCOUNTER 2019-08-03 15:59 | Inpatient (IN) | payer OTHER ==
[2019-08-03] MEDS: KETOROLAC 30 MG INJ IM (17:47)
[2019-08-03 18:00] LABS: ADD MAN DIFF? NO
[2019-08-03 18:07] LABS: WHITE BLOOD COUNT 11.7 10^3/ul (4.8-10.8)
[2019-08-03 18:07] LABS: BASOPHILS % 0.3 % (0.0-2.0); EOSINOPHILS # 0.1 10^3/ul (0.0-0.5); EOSINOPHILS % 0.9 % (0.0-7.0); HEMATOCRIT 43.9 % (42.0-52.0); HEMOGLOBIN 14.7 g/dl (14.0-18.0); LYMPHOCYTES # 2.3 10^3/ul (0.8-2.9); MEAN CORPUSCULAR HEMOGLOBIN 32.5 pg (29.0-33.0); MEAN CORPUSCULAR HGB CONC 33.5 g/dl (32.0-37.0); MEAN CORPUSCULAR VOLUME 96.9 fl (82.0-101.0); MEAN PLATELET VOLUME 9.8 fl (7.4-10.4); MONOCYTE # 0.5 10^3/ul (0.3-0.9); MONOCYTES % 4.5 % (0.0-11.0); NEUTROPHIL # 8.6 10^3/ul (1.6-7.5); NEUTROPHILS % 73.8 % (39.0-77.0); PLATELET COUNT 274 10^3/UL (140-415); RED BLOOD COUNT 4.53 10^6/ul (4.70-6.10); RED CELL DISTRIBUTION WIDTH 13.1 % (11.5-14.5)
[2019-08-03 18:26] LABS: ALANINE AMINOTRANSFERASE 14 IU/L (13-69); ALBUMIN 4.3 g/dl (3.3-4.9); ALBUMIN/GLOBULIN RATIO 1.22; ALKALINE PHOSPHATASE 79 IU/L (42-121); ANION GAP 5 (5-13); ASPARTATE AMINO TRANSFERASE 18 IU/L (15-46); BILIRUBIN,INDIRECT 0.3 mg/dl (0-1.1); BILIRUBIN,TOTAL 0.3 mg/dl (0.2-1.3); BLOOD UREA NITROGEN 13 mg/dl (7-20); CALCIUM 10.4 mg/dl (8.4-10.2); CARBON DIOXIDE 29 mmol/L (21-31); CHLORIDE 104 mmol/L (97-110); CREATININE 0.98 mg/dl (0.61-1.24); Estimated GFR > 60 mL/min (>60); GLUCOSE 93 mg/dl (70-220); POTASSIUM 4.1 mmol/L (3.5-5.1); SODIUM 138 mmol/L (135-144); TOTAL PROTEIN 7.8 g/dl (6.1-8.1)
[2019-08-03] MEDS: HYDROmorphONE 2 MG/ML SYG IV ×2 (18:57→20:54)
[2019-08-03] MEDS ORDERED: ONDANSETRON 4 MG INJ IV (21:00)
[2019-08-03] MEDS ORDERED: NACL 0.9% 3 ML SYG IV (21:00)
[2019-08-03] MEDS: morphine 2 MG INJ IV (22:44)
[2019-08-03] MEDS: FAMOTIDINE 20 MG INJ IV (22:44)
[2019-08-04] MEDS: morphine 2 MG INJ IV ×6 (02:57→23:10)
[2019-08-04 05:33] LABS: ADD MAN DIFF? NO
[2019-08-04 05:45] LABS: BASOPHIL # 0.1 10^3/ul (0.0-0.1); BASOPHILS % 0.6 % (0.0-2.0); EOSINOPHILS # 0.3 10^3/ul (0.0-0.5); EOSINOPHILS % 3.7 % (0.0-7.0); HEMATOCRIT 40.2 % (42.0-52.0); HEMOGLOBIN 13.4 g/dl (14.0-18.0); LYMPHOCYTES # 3.5 10^3/ul (0.8-2.9); LYMPHOCYTES % 44.8 % (15.0-51.0); MEAN CORPUSCULAR HEMOGLOBIN 32.1 pg (29.0-33.0); MEAN CORPUSCULAR HGB CONC 33.3 g/dl (32.0-37.0); MEAN CORPUSCULAR VOLUME 96.4 fl (82.0-101.0); MEAN PLATELET VOLUME 10.2 fl (7.4-10.4); MONOCYTE # 0.5 10^3/ul (0.3-0.9); MONOCYTES % 6.6 % (0.0-11.0); NEUTROPHIL # 3.4 10^3/ul (1.6-7.5); NEUTROPHILS % 43.8 % (39.0-77.0); PLATELET COUNT 234 10^3/UL (140-415); RED BLOOD COUNT 4.17 10^6/ul (4.70-6.10); RED CELL DISTRIBUTION WIDTH 13.2 % (11.5-14.5)
[2019-08-04 05:45] LABS: WHITE BLOOD COUNT 7.8 10^3/ul (4.8-10.8)
[2019-08-04 06:11] LABS: ALANINE AMINOTRANSFERASE 17 IU/L (13-69); ALBUMIN 3.3 g/dl (3.3-4.9); ALBUMIN/GLOBULIN RATIO 1.13; ALKALINE PHOSPHATASE 67 IU/L (42-121); ANION GAP 4 (5-13); ASPARTATE AMINO TRANSFERASE 17 IU/L (15-46); BILIRUBIN,INDIRECT 0.3 mg/dl (0-1.1); BILIRUBIN,TOTAL 0.3 mg/dl (0.2-1.3); BLOOD UREA NITROGEN 13 mg/dl (7-20); CALCIUM 9.7 mg/dl (8.4-10.2); CARBON DIOXIDE 27 mmol/L (21-31); CHLORIDE 107 mmol/L (97-110); CREATININE 0.89 mg/dl (0.61-1.24); Estimated GFR > 60 mL/min (>60); GLUCOSE 82 mg/dl (70-220); POTASSIUM 3.6 mmol/L (3.5-5.1); SODIUM 138 mmol/L (135-144); TOTAL PROTEIN 6.2 g/dl (6.1-8.1)
[2019-08-04 07:07] LABS: HEMOGLOBIN A1C 5.1 % (0-5.9)
[2019-08-04] MEDS: FAMOTIDINE 20 MG INJ IV (08:10)
[2019-08-04] MEDS: ENOXAPARIN 40 MG/0.4 ML SYG SC (08:11)
[2019-08-04] MEDS ORDERED: ACETAMINOPHEN 500 MG TAB PO (15:30)
[2019-08-04] MEDS ORDERED: HYDROCODONE/APAP (10/325) TAB PO (16:00)
[2019-08-04 18:58] LABS: TROPONIN-I < 0.012 ng/ml (0.000-0.120)
[2019-08-04] MEDS: GABAPENTIN 300 MG CAP PO (21:57)
[2019-08-04] MEDS: METHOCARBAMOL 750 MG TAB PO (21:57)
[2019-08-04] MEDS: IBUPROFEN 200 MG TAB PO (21:58)
[2019-08-05 01:44] LABS: TROPONIN-I < 0.012 ng/ml (0.000-0.120)
[2019-08-05] MEDS: morphine 2 MG INJ IV ×5 (03:31→16:03)
[2019-08-05] MEDS: PANTOPRAZOLE (EC) 40 MG TAB PO (06:31)
[2019-08-05 08:55] LABS: ADD MAN DIFF? NO
[2019-08-05 08:57] LABS: BASOPHILS % 0.6 % (0.0-2.0); EOSINOPHILS # 0.3 10^3/ul (0.0-0.5); HEMATOCRIT 42.2 % (42.0-52.0); HEMOGLOBIN 13.7 g/dl (14.0-18.0); LYMPHOCYTES # 1.8 10^3/ul (0.8-2.9); LYMPHOCYTES % 27.8 % (15.0-51.0); MEAN CORPUSCULAR HEMOGLOBIN 31.9 pg (29.0-33.0); MEAN CORPUSCULAR HGB CONC 32.5 g/dl (32.0-37.0); MEAN CORPUSCULAR VOLUME 98.1 fl (82.0-101.0); MONOCYTE # 0.4 10^3/ul (0.3-0.9); MONOCYTES % 5.6 % (0.0-11.0); NEUTROPHILS % 61.5 % (39.0-77.0); PLATELET COUNT 236 10^3/UL (140-415); RED CELL DISTRIBUTION WIDTH 13.3 % (11.5-14.5)
[2019-08-05 08:57] LABS: WHITE BLOOD COUNT 6.6 10^3/ul (4.8-10.8)
[2019-08-05 09:23] LABS: ANION GAP 3 (5-13); BLOOD UREA NITROGEN 12 mg/dl (7-20); CARBON DIOXIDE 29 mmol/L (21-31); CHLORIDE 108 mmol/L (97-110); CREATININE 0.89 mg/dl (0.61-1.24); Estimated GFR > 60 mL/min (>60); GLUCOSE 123 mg/dl (70-220); POTASSIUM 4.5 mmol/L (3.5-5.1); SODIUM 140 mmol/L (135-144)
[2019-08-05 09:25] LABS: CHOL/HDL RATIO 3.9 RATIO; HDL CHOLESTEROL 32 mg/dl (28-71); LDL CHOLESTEROL,CALCULATED 53 mg/dl; TRIGLYCERIDES 206 mg/dl (0-149)
[2019-08-05 09:25] LABS: CHOLESTEROL 126 mg/dl (100-200)
[2019-08-05 09:35] LABS: TROPONIN-I < 0.012 ng/ml (0.000-0.120)
[2019-08-05] MEDS: IBUPROFEN 200 MG TAB PO (09:38)
[2019-08-05] MEDS: GABAPENTIN 300 MG CAP PO ×2 (09:38→12:55)
[2019-08-05] MEDS: METHOCARBAMOL 750 MG TAB PO ×2 (09:38→12:55)
[2019-08-05] MEDS: ENOXAPARIN 40 MG/0.4 ML SYG SC (10:00)
== END 2019-08-05 17:41 | disposition left against medical advice (07) | DRG 552 ==
LOC: TEL 08-05 03:05 → FTE 15:59 → TEL 08-04 17:19 → MS1 20:59
DX: M54.5 Low back pain (principal); D64.9 Anemia, unspecified; R00.1 Bradycardia, unspecified; I10 Essential (primary) hypertension; R55 Syncope and collapse; F17.200 Nicotine dependence, unspecified, uncomplicated; Z53.21 Procedure and treatment not carried out due to patient leaving prior to being seen by health care provider
CPT/HCPCS: 72100; 72149; 80048; 80053; 80061; 83036; 84484; 85025; 93005; 93306; 96372; 96374; 96376; 99285-25